=== PATIENT | female | born 1995 | race Caucasian/White ===

== ENCOUNTER 2020-06-10 23:03 | Emergency (ER) | payer MEDICAID ==
[2020-06-10 23:15] VITALS: BP 137/82; PULSE 100; O2SAT 98
--- NOTE | 2020-06-10 23:23 | ERPHSYRPT ---
- History of Present Illness Source: patient Exam Limitations: no limitations Physician History: Patient is a 24-year-old female with no prior medical history that presents with nausea and vomiting, fatigue and amenorrhea. Patient's last menstrual period was about 2 months ago. Home x2 was negative. Nausea and vomiting has been random with her last vomiting event this morning. Patient denies fever or any URI or symptoms. Patient has no prior history. Patient does mention of history of low iron. Denies any abdominal pain, diarrhea or constipation. Timing/Duration: day(s) (4-5) Severity: moderate Modifying Factors: Improves With: nothing Associated Symptoms: nausea, vomiting, other (fatigue) Allergies/Adverse Reactions: No Known Drug Allergies Allergy (Unverified 06/10/20 23:23) - Review of Systems Constitutional: Fatigue, No Fever, No Chills Eyes: No Symptoms Ears, Nose, & Throat: No Symptoms Respiratory: No Cough, No Dyspnea Cardiac: No Chest Pain, No Edema, No Syncope Abdominal/Gastrointestinal: Nausea, Vomiting, No Abdominal Pain, No Diarrhea, No Constipation Genitourinary Symptoms: No Dysuria Musculoskeletal: No Back Pain, No Neck Pain Skin: No Rash Neurological: No Dizziness, No Focal Weakness, No Sensory Changes Psychological: No Symptoms Endocrine: No Symptoms All Other Systems: Reviewed and Negative - Nursing Vital Signs Nursing Vital Signs: Initial Vital Signs Temperature 98.0 F 06/10/20 23:14 Pulse Rate 100 H 06/10/20 23:14 Respiratory Rate 17 06/10/20 23:14 Blood Pressure 137/82 06/10/20 23:14 O2 Sat by Pulse Oximetry 98 06/10/20 23:14 Pain Scale Pain Intensity 0 - Physical Exam General Appearance: no apparent distress, alert Eye Exam: PERRL/EOMI, eyes nml inspection Ears, Nose, Throat Exam: normal ENT inspection, TMs normal, pharynx normal, moist mucous membranes Neck Exam: normal inspection, non-tender, supple, full range of motion Respiratory Exam: normal breath sounds, lungs clear, No respiratory distress Cardiovascular Exam: regular rate/rhythm, normal heart sounds, normal peripheral pulses Gastrointestinal/Abdomen Exam: soft, normal bowel sounds, No tenderness, No mass Back Exam: normal inspection, normal range of motion, No CVA tenderness, No vertebral tenderness Extremity Exam: normal inspection, normal range of motion, pelvis stable Neurologic Exam: alert, oriented x 3, cooperative, normal mood/affect, nml cerebellar function, nml station & gait, sensation nml, No motor deficits Skin Exam: normal color, warm, dry, No rash Lymphatic Exam: No adenopathy SpO2 Interpretation: normal SpO2: 98 O2 Delivery: Room Air - Course Nursing assessment & vital signs reviewed: Yes Ordered Tests: Active Orders 24 hr Category Date Time Status CULTURE,URINE Stat Lab 06/10/20 23:19 Received HCG,QUALITATIVE URINE Stat Lab 06/10/20 23:17 Incomplete HCG,QUALITATIVE URINE Stat Lab 06/10/20 23:28 Completed UA W/RFX UR CULTURE Stat Lab 06/10/20 23:19 Completed Lab/Rad Data: Laboratory Results 06/10/20 06/10/20 Range/Units 23:28 23:19 Urine Color YELLOW (YELLOW) Urine Appearance CLOUDY (CLEAR) Urine pH 8.0 (5-6) Ur Specific [place] 1.017 (1.005-1.025) Urine Protein 30 (Negative) Urine Ketones NEGATIVE (NEGATIVE) Urine Blood NEGATIVE (0-5) Edd/ul Urine Nitrite NEGATIVE (NEGATIVE) Urine Bilirubin NEGATIVE (NEGATIVE) Urine Urobilinogen 2 (0-1) mg/dL Ur Leukocyte Esterase SMALL (NEGATIVE) Urine WBC (Auto) 3-5 (0-5) /HPF Urine RBC (Auto) NONE SEEN (0-2) /HPF U Epithel Cells (Auto) RARE (FEW) /HPF Urine Bacteria (Auto) NONE (NEGATIVE) /HPF Amorphous Crystals FEW (NEGATIVE) /HPF Urine Mucus (Auto) SLIGHT (NEGATIVE) /HPF Urine Culture Reflexed YES (NO) Urine Glucose NEGATIVE (NEGATIVE) mg/dL Urine HCG, Qual POSITIVE (Negative) - Progress Progress: improved Progress Note: 06/10/20 23:42 Given patient's concern, will get urinalysis and urine . Patient is . Guidance given. Advised water and vitamins. OB referral given. Given no abdominal pain vaginal bleeding or any other issues, will refer to OB. Counseled pt/family regarding: lab results, diagnosis, need for follow-up - Departure Departure Disposition: Home Clinical Impression: Condition: Stable Critical Care Time: No Referrals: DOCTOR,NO FAMILY [Primary Care Provider] - CHASE DAVIS DO [ACTIVE STAFF] - Instructions: Symptoms Additional Instructions: Monitor symptoms closely. Drink plenty of water. Take vitamins as prescribed. You have been referred to our OB Dr. Davis. Please call the office for appointment. You can also follow-up with your PCP if you can get into your OB right away. Return to ER if worse. Prescriptions: 114/Iron A-G/Folate 1 [Prenate Elite Tablet] 1 each PO DAILY 90 Days #90 tablet
[2020-06-10 23:27] LABS: Amourphous Crystal FEW /HPF (NEGATIVE); Appearance CLOUDY (CLEAR); Bilirubin NEGATIVE (NEGATIVE); Blood NEGATIVE Ery/ul (0-5); Epithelial Cells RARE /HPF (FEW); Glucose NEGATIVE (NEGATIVE); Ketones NEGATIVE (NEGATIVE); Leukocyte Esterase SMALL (NEGATIVE); Mucus SLIGHT /HPF (NEGATIVE); Nitrite NEGATIVE (NEGATIVE); Protein,Urine Dip 30 (Negative); Specific Gravity 1.017 (1.005-1.025); Urobilinogen 2 mg/dL (0-1)
[2020-06-10 23:28] LABS: RBC NONE SEEN /HPF (0-2)
== END 2020-06-10 23:48 | disposition home or self-care (01) ==
LOC: ED 23:03
DX: Z33.1 Pregnant state, incidental (principal)
CPT/HCPCS: 81001; 84703; 87086; 99283